=== PATIENT | male | born 1945 | race Caucasian/White ===

== ENCOUNTER 2017-04-28 06:53 | Day surgery (SDC) | payer MEDICARE, BC ==
[2017-04-28] MEDS ORDERED: Lactated Ringers 1,000 ML IV SCH (07:00)
[2017-04-28] MEDS ORDERED: Sodium Chloride 0.9% 10 ML Syringe FLUSH PRN (07:00)
[2017-04-28] MEDS ORDERED: Propofol 200 MG/20 ML SDV IV ONE (08:20)
[2017-04-28] MEDS ORDERED: Lactated Ringers 1,000 ML IV ONE (08:20)
[2017-04-28] MEDS ORDERED: Midazolam 1 MG/ML 2 ML SDV IV ONE (08:20)
--- NOTE | 2017-04-28 08:23 | PCM.HP ---
H&P History of Present Illness - General Date of Service: 04/28/17 Admit Problem/Dx: Admission Diagnosis/Problem Admission Diagnosis/Problem Colonoscopy Source of Information: Patient, Old Records History Limitations: Reports: No Limitations - History of Present Illness Initial Comments - Free Text/Narative: Here for Colonoscopy for history of polyps - Related Data Allergies/Adverse Reactions: Allergies Allergy/AdvReac Type Severity Reaction Status Date / Time No Known Allergies Allergy Verified 09/15/13 14:36 Home Medications: Home Meds Aspirin [Halfprin] 81 mg PO DAILY 09/15/13 [History] Carvedilol [Coreg] 6.25 mg PO BID 09/15/13 [History] Clopidogrel [Plavix] 75 mg PO DAILY 09/15/13 [History] atorvaSTATin [Lipitor] 20 mg PO BEDTIME 09/15/13 [History] Colchicine 0.6 mg PO BID PRN 04/27/17 [History] Fish Oil/Dalton-3 Fatty Acids [Fish Oil] 1 each PO DAILY 04/27/17 [History] Ibuprofen/Diphenhydramine Cit [Ibuprofen PM Caplet] 1 tab PO BEDTIME PRN [History] Nitroglycerin [Nitrostat] 0.4 mg SL ASDIRECTED 04/27/17 [History] Pantoprazole Sodium [Protonix] 40 mg PO DAILY 04/27/17 [History] Ranolazine [Ranexa] 500 mg PO BID 04/27/17 [History] Past Medical History HEENT History: Reports: Impaired Vision Cardiovascular History: Reports: CAD, High Cholesterol, Hypertension, Stents, Other (See Below) Other Cardiovascular History: DIALATED LT VENTRICLE WITHGRADE 1 DIASTOLIC DYSFUNCTION. 45% EJECTION FRACTION, CLAUDICATION. GIVES HX OF 4 STENTS PLACED. Respiratory History: Reports: Other (See Below) Other Respiratory History: ASPIRATION PNEUMONIA DURING KIDNEY STONE LITHOTRIPSY. Gastrointestinal History: Reports: Colon Polyp, Diverticulosis, GERD Genitourinary History: Reports: Renal Disease Musculoskeletal History: Reports: Gout, Osteoarthritis Neurological History: Reports: CVA, Migraines, Neuropathy, Peripheral Psychiatric History: Reports: None Hematologic History: Reports: None Immunologic History: Reports: None Oncologic (Cancer) History: Reports: Basal Cell Carcinoma Other Oncologic History: BASAL CELL ON HEAAD ET BACK REMOVED. Dermatologic History: Reports: None - Infectious Disease History Other Infectious Disease History: STATES CANNOT REMEMBER OF HAVING ANY CHILDHOOD DISEASES. - Past Surgical History Cardiovascular Surgical History: Reports: Coronary Artery Stent GI Surgical History: Reports: Cholecystectomy, Colon, Colonoscopy, EGD, Hernia, Abdominal, Hernia Repair/Other, Polypectomy Social & Family History - Family History Family Medical History: Noncontributory - Tobacco Use Smoking Status *Q: Never Smoker Second Hand Smoke Exposure: No - Caffeine Use Caffeine Use: Reports: Coffee, Soda - Alcohol Use Days Per Week of Alcohol Use: 1 Number of Drinks Per Day: 2 Total Drinks Per Week: 2 - Recreational Drug Use Recreational Drug Use: No H&P Review of Systems - Review of Systems: Review Of Systems: ROS reveals no pertinent complaints other than HPI. Exam - Exam Exam: See Below - Vital Signs Vital Signs: Last Vital Signs Temp 97.6 F 04/28/17 07:13 Pulse 70 04/28/17 07:13 Resp 18 04/28/17 07:13 BP 147/83 H 04/28/17 07:13 Pulse Ox 96 04/28/17 07:13 Weight: 89.358 kg - Exam General: Alert, Oriented Lungs: Clear to Auscultation, Normal Respiratory Effort Cardiovascular: Regular Rate, Regular Rhythm Abdomen: Soft *Q Meaningful Use (ADM) - VTE *Q VTE Criteria *Q: - Stroke *Q Stroke Criteria *Q: - AMI *Q AMI Criteria *Q: Problem List Initiated/Reviewed/Updated: Yes Orders Last 24hrs: Active Orders 24 hr Category Date Time Status Patient Status [ADT] Routine ADT 04/28/17 07:00 Ordered Patient to Empty Bladder [RC] ASDIRECTED Care 04/28/17 07:00 Active Verify Patient Consent Obtain [RC] ASDIRECTED Care 04/28/17 07:00 Active Lactated Ringers [Ringers, Lactated] 1,000 ml Med 04/28/17 07:00 Active IV ASDIRECTED Sodium Chloride 0.9% [Saline Flush] Med 04/28/17 07:00 Active 10 ml FLUSH ASDIRECTED PRN Peripheral IV Insertion Adult [OM.PC] Routine Oth 04/28/17 07:00 Ordered Resuscitation Status Routine Resus Stat 04/27/17 09:41 Ordered Medication Orders Lactated Ringer's (Ringers, Lactated) 1,000 mls @ 125 mls/hr IV ASDIRECTED LOBO Last Admin: 04/28/17 07:32 Dose: 125 mls/hr Sodium Chloride (Saline Flush) 10 ml FLUSH ASDIRECTED PRN PRN Reason: Keep Vein Open Assessment/Plan Comment:: Colonoscopy for history of polyps ok to proceed
[2017-04-28] MEDS ORDERED: Simethicone Drops 40 MG/0.6 ML 30 ML Bottle ONE (08:49)
--- NOTE | 2017-04-28 09:03 | PCM.OPNOTE ---
- General Post-Op/Procedure Note Date of Surgery/Procedure: 04/28/17 Operative Procedure(s): Colonoscopy with polypectomy Findings: Cecal Polyp Sig Diverticulosis Pre Op Diagnosis: Hx Colon Polyps Post-Op Diagnosis: Same Anesthesia Technique: MAC Primary Surgeon: Germain Torres Pathology: Polyp Complications: None Condition: Good
--- NOTE | 2017-04-28 10:29 | OR ---
DATE OF OPERATION: 04/28/2017 SURGEON: Germain Torres MD PREOPERATIVE DIAGNOSES: 1. Family history of colon cancer. 2. History of colon polyps. 3. Diverticulosis. POSTOPERATIVE DIAGNOSES: 1. Cecal polyp. 2. Diverticulosis. PROCEDURE: Colonoscopy with polypectomy. ANESTHESIA: IV sedation. NARRATIVE: The patient was brought to the procedure room. He was placed on his left side and IV sedation was administered. Digital rectal exam was performed, which was normal. The colonoscope was inserted and advanced to the level of the cecum with some difficulty getting through a tortuous right colon. I was able to reach the cecum, which was confirmed by identifying the appendiceal lumen and ileocecal valve. At the appendiceal orifice was an 8 mm sessile adenomatous appearing polyp that was mostly removed with the cautery snare. The remaining edge was cauterized. There was some minimal oozing present which was controlled with cautery and observed for few minutes and remained hemostatic. The polyp was retrieved and will be sent for pathology review. The ascending colon was also somewhat tortuous and there appears to be an area of thickening of the fold where I suspect his previous anastomosis was from his colostomy. The transverse colon was normal. In the descending colon, were several diverticula present. Colorectal anastomosis appears normal. Rectum was normal and retroflexion was normal. Air was removed and the scope withdrawn. The patient tolerated the procedure well and returned to recovery in stable condition. The patient will be contacted with the pathology report when it returns. If the polyp is adenomatous, I would recommend that he undergo a repeat colonoscopy in three years. /[id number] ROSA/SUZIE
[2017-04-28 10:33] VITALS: BP 167/92
== END 2017-04-28 10:15 | disposition home or self-care (01) ==
LOC: FB.SDS 06:53
PROVIDERS: ATTEND Surgery
DX: Z12.11 Encounter for screening for malignant neoplasm of colon (principal); D12.0 Benign neoplasm of cecum; K57.30 Diverticulosis of large intestine without perforation or abscess without bleeding; Z86.010 Personal history of colon polyps; Z80.0 Family history of malignant neoplasm of digestive organs; I25.10 Atherosclerotic heart disease of native coronary artery without angina pectoris; E78.00 Pure hypercholesterolemia, unspecified; I10 Essential (primary) hypertension; K21.9 Gastro-esophageal reflux disease without esophagitis; Z95.5 Presence of coronary angioplasty implant and graft; Z90.49 Acquired absence of other specified parts of digestive tract; Z98.890 Other specified postprocedural states; Z79.82 Long term (current) use of aspirin; Z79.899 Other long term (current) drug therapy
CPT/HCPCS: 00810; 45385; 88305; A9270; J2250; J2704; J7120